=== PATIENT | female | born 1950 | race Caucasian/White ===

== ENCOUNTER 2019-01-14 03:13 | Inpatient (IN) | payer OTHER, MEDICAID ==
[~2019-01-14] VITALS: Ht 160 cm; Wt 68.0 kg
[~2019-01-14 03:13] MED LIST: [UNRECOGNIZED DRUG - CODE] PO
[2019-01-14 03:38] VITALS: BP 145/95
--- NOTE | 2019-01-14 03:55 | NUR ---
PT TAKEN TO BED 11
--- NOTE | 2019-01-14 04:00 | NUR ---
68 Y/O FEMALE PRESENTS TO ED, C/O FEVER. PT STATES SHE HAS BEEN HAVING FEVER FOR PAST COUPLE DAYS. NIECE AT BEDSIDE STATES PT'S FEVER HAS BEEN AROUND 100. PT ALSO C/O GENERALIZED BODY PAIN 7/10 AND COUGH X2 DAYS. PT HAS NO RESPIRATORY DISTRESS/SOB. PT VSS. ERMD AWARE. WILL CONTINUE TO MONITOR.
--- NOTE | 2019-01-14 04:32 | NUR ---
Dr. Morfin examining patient.
[2019-01-14] MEDS ORDERED: NACL 0.9% 2,000 ML IV ONE (04:34)
[2019-01-14] MEDS ORDERED: KETOROLAC 30 MG/ML VIAL IVP ONE (04:35)
[2019-01-14] MEDS ORDERED: cefTRIAXone 1,000 MG VIAL ONE (05:06)
[2019-01-14 05:07] LABS: BASOPHILS # (AUTO) 0.1 K/uL (0.00-0.22); BASOPHILS % (AUTO) 0.6 % (0.0-2.0); EOSINOPHILS % (AUTO) 0.3 % (0.0-4.0); HEMATOCRIT 39.8 % (36-48); HEMOGLOBIN 13.4 g/dL (12.0-16.0); LYMPHOCYTES # (AUTO) 1.1 K/uL (2.5-16.5); LYMPHOCYTES % (AUTO) 10.2 % (20.5-51.1); MEAN CORPUSCULAR HEMOGLOBIN 31 pg (27-31); MEAN CORPUSCULAR HGB CONC 34 g/dL (33-37); MEAN CORPUSCULAR VOLUME 91.6 fL (80-94); MONOCYTES % (AUTO) 9.5 % (1.7-9.3); NEUTROPHILS # (AUTO) 8.6 K/uL (1.8-7.7); NEUTROPHILS % (AUTO) 79.4 % (42.2-75.2); PLATELET COUNT (AUTO) 274 K/uL (140-450); RED BLOOD CELL COUNT(AUTO) 4.34 MIL/uL (4.20-5.40); RED CELL DISTRIBUTION WIDTH 13.5 % (11.6-13.7); WHITE BLOOD COUNT (AUTO) 10.9 K/uL (4.8-10.8)
[2019-01-14 05:21] LABS: ANION GAP 10.8 (8-16); CARBON DIOXIDE 29.8 mmol/L (21-32); CREATININE 0.8 mg/dL (0.6-1.3); POTASSIUM 3.6 mmol/L (3.5-5.1)
[2019-01-14 05:36] LABS: ALBUMIN 3.3 g/dL (3.4-5.0); TOTAL BILIRUBIN 0.7 mg/dL (0.0-1.0)
[2019-01-14 06:30] LABS: APPEARANCE,URINE HAZY (CLEAR); BILIRUBIN,URINE NEGATIVE (NEGATIVE); BLOOD, URINE 1+ (NEGATIVE); COLOR,URINE YELLOW (YELLOW); LEUKOCYTE ESTERASE ,URINE TRACE (NEGATIVE); NITRITE, URINE NEGATIVE (NEGATIVE); PH,URINE 6.5 (5.0-9.0); UGLUCOSE NEGATIVE (NEGATIVE)
[2019-01-14 06:49] LABS: RBC,URINE 0-5 /HPF (0-5)
--- NOTE | 2019-01-14 06:53 | NUR ---
Dr. Grullon examining patient.
[2019-01-14] MEDS ORDERED: DOCUSATE SODIUM 100 MG GELCAP PO PRN (07:00)
[2019-01-14] MEDS ORDERED: HYDROcodone/APAP 5/325 MG 1 TAB TAB PO PRN (07:00)
[2019-01-14] MEDS ORDERED: ONDANSETRON 4 MG/2 ML VIAL IM/IVP PRN (07:00)
--- NOTE | 2019-01-14 07:22 | NUR ---
PT ADMITTED TO [facility] RM 114. TRANSFERRED PT VIA [facility]. REPORT GIVEN TO SHAYY CABELLO. PT CARE TRANSFERRED TO RECEIVING RN.
--- NOTE | 2019-01-14 07:25 | NUR ---
PT ARRIVED ON THE UNIT VIA GURNEY. RECIEVED REPORT FROM JT COLE RN. PT APPEARS STABLE AND IN NO APPARENT DISTRESS. ALL SAFETY MEASURES ARE IN PLACE. ORIENTED PT TO UNIT. VITALS STABLE. MRSA COLLECTED WILL CONTINUE TO MONITOR.
[2019-01-14] MEDS: NACL 0.9% 1,000 ML IV SCH ×2 (08:34→21:41)
--- NOTE | 2019-01-14 09:34 | NUR ---
FREQUENT ROUNDING ON PT PT APPEARS STABLE AND WILL CONTINUE TO MONITOR
[2019-01-14] MEDS: ACETAMINOPHEN 325 MG TAB PO PRN (11:52)
[2019-01-14 12:06] VITALS: BP 145/76
--- NOTE | 2019-01-14 12:32 | NUR ---
PT HAS FEVER 101.1 ADMINISTERED TORADOL ORDERED INFORMED DR. BLANKENSHIP. DR. BLANKENSHIP TO SEE PT AT BEDSIDE.
[2019-01-14] MEDS ORDERED: KETOROLAC 15 MG/ML VIAL IVP SCH (12:35)
--- NOTE | 2019-01-14 13:20 | NUR ---
PATIENT HAS BEEN SCREENED AND CATEGORIZED HIGH NUTRITION RISK. PATIENT WILL BE SEEN WITHIN 1-2 DAYS OF ADMISSION. 01/14/19 - 01/15/19 MACARIO GONZALEZ MBA, RD
--- NOTE | 2019-01-14 13:31 | NUR ---
TORADOL REASSESSMENT PT TEMP 98.6 PT APPEARS STABLE AND IN NO APPARENT DISTRESS. PT NOT COMPLAINING OF ANY NAUSEA, OR CHILLS.
[2019-01-14 16:02] LABS: BASOPHILS % (AUTO) 0.2 % (0.0-2.0); EOSINOPHILS % (AUTO) 0.1 % (0.0-4.0); HEMATOCRIT 34.9 % (36-48); HEMOGLOBIN 11.5 g/dL (12.0-16.0); LYMPHOCYTES # (AUTO) 0.7 K/uL (2.5-16.5); MEAN CORPUSCULAR HEMOGLOBIN 30 pg (27-31); MEAN CORPUSCULAR HGB CONC 33 g/dL (33-37); MONOCYTES # (AUTO) 1.2 K/uL (0.8-1.0); NEUTROPHILS # (AUTO) 9.8 K/uL (1.8-7.7); NEUTROPHILS % (AUTO) 83.7 % (42.2-75.2); PLATELET COUNT (AUTO) 244 K/uL (140-450); RED CELL DISTRIBUTION WIDTH 13.4 % (11.6-13.7); WHITE BLOOD COUNT (AUTO) 11.8 K/uL (4.8-10.8)
[2019-01-14 16:19] LABS: ALBUMIN 2.7 g/dL (3.4-5.0); ANION GAP 12.9 (8-16); CARBON DIOXIDE 25.1 mmol/L (21-32); CREATININE 0.8 mg/dL (0.6-1.3); MAGNESIUM 1.4 mg/dL (1.8-2.4); PHOSPHORUS 2.3 mg/dL (2.5-4.9); TOTAL BILIRUBIN 0.3 mg/dL (0.0-1.0)
[2019-01-14 16:25] VITALS: BP 146/76
[2019-01-14] MEDS ORDERED: POTASSIUM CHLORIDE 40 MEQ, LIDOCAINE MPF 1% 25 MG in NACL 0.9% 250 ML IV ONE (16:40)
[2019-01-14] MEDS ORDERED: SODIUM PHOS / POTASSIUM PHOS 1 PKT PDR PO ONE (16:55)
[2019-01-14] MEDS ORDERED: MAGNESIUM OXIDE 400 MG TAB PO ONE (16:55)
[2019-01-14] MEDS ORDERED: NICOTINE TRANSD SYS 14 MG/24 HR PATCH TD SCH (16:55)
[2019-01-14 17:03] LABS: PROTHROMBIN TIME 10.3 secs (10.8-13.4)
[2019-01-14 17:16] LABS: THYROID STIMULATING HORMONE 0.07 uIU/mL (0.34-3.74)
--- NOTE | 2019-01-14 17:32 | NUR ---
FREQUENT ROUNDING ON PT PT APPEARS STABLE AND IN NO APPARENT DISTRESS. ALL SAFETY MEASURES ARE IN PLACE WILL CONTINUE TO MONITOR. PT NIECE AT BEDSIDE.
[2019-01-14 18:06] LABS: BARBITURATE, URINE NEG. ng/ml (NEG <=200); BENZODIAZEPINE, URINE NEG. ng/mL (NEG <=200); CANNABINOID, URINE NEG. ng/mL (NEG <=50); COCAINE, URINE NEG. ng/mL (NEG <=300); OPIATE, URINE NEG. ng/mL (NEG <=2000); PHENCYCLIDINE SCREEN,URINE NEG. ng/mL (NEG <=25)
[2019-01-14] MEDS ORDERED: POTASSIUM CHLORIDE 10 MEQ TABER PO ONE (18:10)
--- NOTE | 2019-01-14 18:13 | NUR ---
SPOKE WITH DR. BLANKENSHIP ABOUT POTASSIUM IV WITH LIDOCAINE ORDER. UNABLE TO ADMINISTER PHARMACY AFTER HOURS. DR. BLANKENSHIP SAID TO JUST GIVE PO POTASSIUM FOR NOW
--- NOTE | 2019-01-14 18:33 | NUR ---
ADMINISTERED MAG PO, POTASSIUM PO, NICOTINE PATCH, LEFT SHOULDER. PHOS PACKET. NO SCANNER ON OUTPATIENT WOW. ENTERED MANUAL BARCODE
--- NOTE | 2019-01-14 19:16 | NUR ---
endorsed pt to pm rn pt appears stable and in no apparent distress. all safety measures are in place ivf infusing iv site patent and shows no signs of infiltration or inflammation.
--- NOTE | 2019-01-14 19:17 | NUR ---
RECEIVED REPORT FROM AM NURSE AT BEDSIDE. PATIENT IS LAYING IN BED LETHARGIC WITH A HIGH TEMPERATURE PER PREVIOUS SHIFT, WILL RECHECK TEMP LATER. PATIENT RESPIRATIONS EVEN AND UNLABORED ON ROOM AIR. PATIENT AOX3. PATIENT BOARD UPDATED. IV SITE INTACT, ASYMPTOMATIC AND PATENT ON NS 100ML/HR. PATIENT WITH SUPRAPUBIC STOMA. CALL LIGHT PLACED WITHIN PATIENT REACH, BED LOWERED. WILL CONTINUE TO MONITOR PATIENT.
[2019-01-14 20:10] VITALS: BP 137/77
--- NOTE | 2019-01-14 21:00 | NUR ---
PT NOT ABLE TO SWALLOW ACETAMINOPHEN AT THIS TIME, PT LETHARGIC WITH FEVER 101.8. DR. ANGELA INFORMED WILL ORDER TORADOL
[2019-01-14] MEDS ORDERED: KETOROLAC 15 MG/ML VIAL ONE (21:19)
[2019-01-14] MEDS: KETOROLAC 15 MG/ML VIAL IVP SCH (21:20)
--- NOTE | 2019-01-14 21:20 | NUR ---
TORADOL GIVEN PER DR'S ORDER
[2019-01-15 00:10] VITALS: BP 164/77
[2019-01-15] MEDS: KETOROLAC 15 MG/ML VIAL IVP SCH ×3 (01:04→12:27)
--- NOTE | 2019-01-15 01:05 | NUR ---
ROUTINE TORADOL GIVEN ORDERED
[2019-01-15 04:05] VITALS: BP 125/65
[2019-01-15] MEDS ORDERED: cefTRIAXone 1,000 MG VIAL ONE (05:18)
--- NOTE | 2019-01-15 05:30 | NUR ---
ROCEPHIN GIVEN AT THIS TIME
[2019-01-15] MEDS: ACETAMINOPHEN 325 MG TAB PO PRN (06:30)
--- NOTE | 2019-01-15 07:15 | NUR ---
PT AWAKE, ALERT, ORIENTED X 3, PT AFEBRILE, AMBULATORY WITH STANDBY ASSIST. PT IN STABLE CONDITION AT THIS TIME
--- NOTE | 2019-01-15 07:20 | NUR ---
RECEIVED REPORT FROM MANAGER REQUIREMENTS NURSE. PATIENT IS AWAKE, ALERT, ORIENTED X4. RESPIRATION EVEN AND UNLABORED. SAFETY MEASURES IN PLACE. OBSERVED WITH IVF NS INFUSING 100ML/HR VIA LEFT FOREARM 22G. IV INTACT AND PATENT. NO EDEMA NOTED. SIDE RAILS UP X2. NO ACUTE DISTRESS NOTED. CALL LIGHT WITHIN REACH. DENIES PAIN AT THIS TIME.
--- NOTE | 2019-01-15 07:30 | NUR ---
NS 1000ML CHANGED
[2019-01-15 07:37] LABS: CHOL/HDL RATIO 2.4 (1-4.5)
[2019-01-15] MEDS: NACL 0.9% 1,000 ML IV SCH ×2 (07:44→18:38)
[2019-01-15 08:00] VITALS: BP 139/60
[2019-01-15] MEDS: NICOTINE TRANSD SYS 14 MG/24 HR PATCH TD SCH (09:32)
[2019-01-15] MEDS: LACTOBACILLUS RHAMNOSUS GG 1 EACH CAP PO SCH (09:33)
[2019-01-15] MEDS ORDERED: POTASSIUM CHLORIDE 40 MEQ, LIDOCAINE MPF 1% 25 MG in NACL 0.9% 250 ML IV ONE (09:55)
[2019-01-15] MEDS ORDERED: MAGNESIUM OXIDE 400 MG TAB PO ONE (10:00)
[2019-01-15] MEDS ORDERED: SODIUM PHOS / POTASSIUM PHOS 1 PKT PDR PO ONE (10:00)
[2019-01-15 12:00] VITALS: BP 175/79
--- NOTE | 2019-01-15 12:27 | NUR ---
PT WAS GIVEN PAIN MEDICATION IV PUSH NOW, PARAMETER CHECKED. WILL MONITOR PT.
[2019-01-15] MEDS ORDERED: hydrALAZINE 20 MG/ML VIAL IVP PRN (12:30)
[2019-01-15] MEDS ORDERED: LISINOPRIL 5 MG TAB PO SCH (12:33)
--- NOTE | 2019-01-15 12:47 | NUR ---
PT'S BP WAS CHECKED AND IS 175/79, PULSE IS 88, DR. NORRIS WAS INFORMED AND BP MEDICATION WAS GIVEN VIA IV PUSH. WILL RECHECK BP AND MONITOR PT.
--- NOTE | 2019-01-15 13:11 | NUR ---
PT' BP WAS CHECKED AFTER 15 MINS OF GIVING THE HYDRALAZINE AND BP IS 152/65, PULSE IS 95, LISINOPRIL WAS GIVEN PER DR. NORRIS. WILL RECHECK BP AND MONITOR PT.
--- NOTE | 2019-01-15 13:49 | NUR ---
01/15/19 RD INITIAL ASSESSMENT COMPLETED PLEASE REFER TO NUTRITION ASSESSMENT UNDER CARE ACTIVITY FOR ESTIMATED NUTRITIONAL NEEDS. 1. CONTINUE REGULAR DIET TOLERATED 2. ENCOURAGE INCREASING PO INTAKE 3. RD TO FOLLOW-UP 5-7 DAYS, LOW RISK BRIGID KEENE RD
[2019-01-15 15:22] LABS: BASOPHILS % (AUTO) 0.5 % (0.0-2.0); EOSINOPHILS # (AUTO) 0.1 K/uL (0-0.4); EOSINOPHILS % (AUTO) 0.9 % (0.0-4.0); HEMOGLOBIN 11.7 g/dL (12.0-16.0); LYMPHOCYTES # (AUTO) 0.8 K/uL (2.5-16.5); MEAN CORPUSCULAR HEMOGLOBIN 31 pg (27-31); MEAN CORPUSCULAR HGB CONC 33 g/dL (33-37); MEAN CORPUSCULAR VOLUME 91.4 fL (80-94); MONOCYTES # (AUTO) 0.9 K/uL (0.8-1.0); MONOCYTES % (AUTO) 9.2 % (1.7-9.3); NEUTROPHILS % (AUTO) 81.4 % (42.2-75.2); PLATELET COUNT (AUTO) 227 K/uL (140-450); RED BLOOD CELL COUNT(AUTO) 3.83 MIL/uL (4.20-5.40); RED CELL DISTRIBUTION WIDTH 13.3 % (11.6-13.7); WHITE BLOOD COUNT (AUTO) 9.8 K/uL (4.8-10.8)
[2019-01-15 15:58] LABS: ALBUMIN 2.4 g/dL (3.4-5.0); ANION GAP 12.8 (8-16); CARBON DIOXIDE 25.6 mmol/L (21-32); CREATININE 1.1 mg/dL (0.6-1.3); PHOSPHORUS 2.2 mg/dL (2.5-4.9); POTASSIUM 3.4 mmol/L (3.5-5.1); TOTAL BILIRUBIN 0.3 mg/dL (0.0-1.0)
[2019-01-15 16:00] VITALS: BP 141/55
[2019-01-15] MEDS ORDERED: POTASSIUM PHOSPHATE 15 MM in NACL 0.9% 250 ML IV SCH (18:00)
--- NOTE | 2019-01-15 18:53 | NUR ---
POTASSIUM IV WAS GIVEN TO PT NOW FOR K LEVEL OF 3.4. WILL MONITOR PT.
--- NOTE | 2019-01-15 19:37 | NUR ---
ENDORSED PT TO BLUE CRABBER NURSENEISHA FOR CONTINUITY OF CARE.
--- NOTE | 2019-01-15 19:38 | NUR ---
BEDSIDE REPORT RECEIVED FROM DAY SHIFT RN. A/O X4 PERSON PLACE TIME AND EVENT. DISCUSSED PLAN OF CARE. VERBALIZED UNDERSTANDING. AMBULATORY WITH STEADY GAIT. NO SIGNS OF DISTRESS. NO SOB. EVEN UNLABORED BREATHING. ROOM AIR. NO PAIN REPORTED AT THIS TIME. SKIN INTACT. IV @ L WRIST 22G. PATENT AND INTACT. UROSTOMY IN PLACE, DRY AND INTACT. TELE MONITOR PLACED. BED IN LOWEST POSITION. CONTACT PRECAUTIONS IN PLACE. PPE AVAILABLE AT DOOR. CALL LIGHT WITHIN REACH. WILL CONTINUE TO MONITOR.
[2019-01-15 20:00] VITALS: BP 140/63
--- NOTE | 2019-01-15 21:00 | NUR ---
PT REFUSED SCHEDULED MED HEPARIN. EDUCATED ON SIDE EFFECTS AND VERBALIZED UNDERSTANDING.
--- NOTE | 2019-01-15 23:00 | NUR ---
PT SITTING IN BED. REQUESTED ICE CHIPS. NO SIGNS OF DISTRESS. EVEN UNLABORED BREATHING. WILL CONTINUE TO MONITOR.
[2019-01-16] VITALS: BP 158/81
[2019-01-16] MEDS: MORPHINE SULFATE 2 MG/ML SYR IVP PRN ×2 (00:09→17:29)
--- NOTE | 2019-01-16 00:53 | NUR ---
PT RESTING IN BED. NO SIGNS OF DISTRESS. PAIN DECREASED. ABLE TO MAKE NEEDS KNOWN. WILL CONTINUE TO MONITOR.
--- NOTE | 2019-01-16 02:49 | NUR ---
PT SLEEPING IN BED. NS INFUSING AT THIS TIME. IV PATENT AND INTACT. NO SIGNS OF INFILTRATION. WILL CONTINUE TO MONITOR.
[2019-01-16] MEDS: NACL 0.9% 1,000 ML IV SCH ×3 (03:20→23:41)
[2019-01-16 04:00] VITALS: BP 169/76
--- NOTE | 2019-01-16 04:10 | NUR ---
PT SLEEPING IN BED. ABLE TO MAKE NEEDS KNOWN. VITALS TAKEN. TOLERATED WELL. TEMP 100.9 ORAL. WILL ADMINISTER TYLENOL FOR FEVER. WILL CONTINUE TO MONITOR.
[2019-01-16] MEDS: ACETAMINOPHEN 325 MG TAB PO PRN (04:11)
--- NOTE | 2019-01-16 06:40 | NUR ---
PT SLEEPING IN BED. EVEN UNLABORED BREATHING. BED IN LOWEST POSITION. PT IN STABLE CONDITION. WILL GIVE BEDSIDE REPORT TO DAYSHIFT RN FOR CONTINUITY OF CARE.
--- NOTE | 2019-01-16 07:10 | NUR ---
RECEIVED PT FROM BUSINESS OPERATIONS COORDINATOR NEISHA, PT IS AWAKE AND LYING ON THE BED WITH SIDE RAILS UP AND CALL LIGHT WITHIN REACH, IV LINE ON THE LEFT FA G. 22 WITH IVF NS INFUSING AT 100ML/HR, INTACT, UROSTOMY IN PLACE IN THE RT ABDOMINAL SIDE AREA, ON CONTACT ISOLATION FOR HX OF MRSA OF NAR[place], NO SIGN OF DISTRESS NOTED AND WILL CONTINUE TO MONITOR PT.
[2019-01-16 08:00] VITALS: BP 129/50
[2019-01-16 08:12] LABS: BASOPHILS # (AUTO) 0.1 K/uL (0.00-0.22); BASOPHILS % (AUTO) 0.7 % (0.0-2.0); EOSINOPHILS # (AUTO) 0.1 K/uL (0-0.4); EOSINOPHILS % (AUTO) 1.3 % (0.0-4.0); HEMATOCRIT 33.1 % (36-48); HEMOGLOBIN 10.9 g/dL (12.0-16.0); LYMPHOCYTES # (AUTO) 1.1 K/uL (2.5-16.5); LYMPHOCYTES % (AUTO) 11.8 % (20.5-51.1); MEAN CORPUSCULAR HEMOGLOBIN 30 pg (27-31); MEAN CORPUSCULAR HGB CONC 33 g/dL (33-37); MEAN CORPUSCULAR VOLUME 91.8 fL (80-94); MONOCYTES # (AUTO) 0.8 K/uL (0.8-1.0); MONOCYTES % (AUTO) 8.5 % (1.7-9.3); NEUTROPHILS # (AUTO) 7.1 K/uL (1.8-7.7); NEUTROPHILS % (AUTO) 77.7 % (42.2-75.2); PLATELET COUNT (AUTO) 240 K/uL (140-450); RED BLOOD CELL COUNT(AUTO) 3.61 MIL/uL (4.20-5.40); RED CELL DISTRIBUTION WIDTH 13.2 % (11.6-13.7); WHITE BLOOD COUNT (AUTO) 9.2 K/uL (4.8-10.8)
[2019-01-16 08:32] LABS: MAGNESIUM 1.8 mg/dL (1.8-2.4); PHOSPHORUS 2.4 mg/dL (2.5-4.9)
[2019-01-16] MEDS: LACTOBACILLUS RHAMNOSUS GG 1 EACH CAP PO SCH (08:38)
--- NOTE | 2019-01-16 08:38 | NUR ---
MEDICATIONS GIVEN ORDERED. BP MEDS GIVEN, BP 144/65, HR 75. TOLERATED WELL. NO ACUTE DISTRESS NOTED. CALL LIGHT WITHIN REACH.
[2019-01-16 08:39] LABS: ANION GAP 9.9 (8-16); CARBON DIOXIDE 26.3 mmol/L (21-32); CREATININE 0.7 mg/dL (0.6-1.3); POTASSIUM 3.2 mmol/L (3.5-5.1)
[2019-01-16] MEDS: NICOTINE TRANSD SYS 14 MG/24 HR PATCH TD SCH (08:39)
[2019-01-16] MEDS ORDERED: LISINOPRIL 5 MG TAB PO SCH ×2 (09:00)
--- NOTE | 2019-01-16 10:38 | NUR ---
PT REFUSED TO HAVE THE COTTONSEED MEAT PRESSER FIX HER BED AND CLEAN UP.
[2019-01-16 12:00] VITALS: BP 137/63
--- NOTE | 2019-01-16 13:41 | NUR ---
PATIENT IN BED QUIETLY RESTING, WATCHING TV. IVF NS REPLACED WITH A NEW BAG CONT. INFUSION AT 100ML/HR.
--- NOTE | 2019-01-16 15:50 | NUR ---
DR. BLANKENSHIP INFORMED OF PATIENT'S ABNORMAL LABS POTASSIUM 3.2. MD WILL PLACE AN ORDER.
[2019-01-16 16:00] VITALS: BP 148/64
--- NOTE | 2019-01-16 17:29 | NUR ---
PATIENT REPORTED PAIN 10/10. MORPHINE 1MG IVP GIVEN ORDERED. TOLERATED WELL.
[2019-01-16] MEDS ORDERED: SODIUM PHOS / POTASSIUM PHOS 1 PKT PDR PO SCH (18:00)
[2019-01-16] MEDS ORDERED: POTASSIUM CHLORIDE 10 MEQ TABER PO SCH (18:00)
--- NOTE | 2019-01-16 18:05 | NUR ---
PT IS AWAKE AND ORAL MEDICATIONS WERE GIVEN FOR K LEVEL OF 3.2. WILL MONITOR PT.
--- NOTE | 2019-01-16 19:10 | NUR ---
ENDORSED PATIENT TO FRONT END DRUPAL DEVELOPER NURSE FOR CONTINUITY OF CARE. PATIENT IN STABLE CONDITION.
--- NOTE | 2019-01-16 19:11 | NUR ---
RECD. RESTING IN BED, AWAKE, A/OX4. RESPIRATION EVEN AND UNLABORED. IV OF NS AT 100 ML/HR INFUSING. IV IS LEAKING. DISCONNECT FROM PATIENT AND INFORMED NEW IV INSERTION WILL BE DONE BUT PATIENT REFUSED, STATED I AM GOING HOME TOMORROW. REMINDED THAT THERE IS STILL ANTIBIOTIC DUE TOMORROW AT 0600. WILL INFORMED MD. UROSTOMY IN PLACED AND INTACT, PATIENT KNOWS HOW TO MANAGE IT. PLAN OF CARE FOR THE SHIFT DISCUSSED. VERBALIZED UNDERSTANDING. DENIES PAIN 0/10.
[2019-01-16 20:00] VITALS: BP 167/71
--- NOTE | 2019-01-16 20:00 | NUR ---
Patient's Plan of Care was discussed and reviewed with PLASTICS FITTER: Antoinette Carrasco
--- NOTE | 2019-01-16 20:30 | NUR ---
INFORMED DR. SORIANO PATIENT BP - 167/76, HR -88. WILL ORDER BP MEDICATION.
[2019-01-16] MEDS ORDERED: LISINOPRIL 10 MG TAB PO SCH (20:50)
--- NOTE | 2019-01-16 21:22 | NUR ---
MEDICATED WITH ZESTRIL 10 MG. PO ORDERED BY . PATIENT STILL REFUSING IV INSERTION. WILL INFORMED .
--- NOTE | 2019-01-16 22:20 | NUR ---
BP CHECKED - 152/84. HR -88. WATCHING TV.
--- NOTE | 2019-01-16 23:00 | NUR ---
INFORMED DR. SORIANO THAT PATIENT IS REFUSING IV INSERTION AND WANTS ANTIBIOTIC BY PO, WILL DECIDE IN THE MORNING.
[2019-01-17] VITALS: BP 150/82
--- NOTE | 2019-01-17 00:30 | NUR ---
SLEEPING COMFORTABLY IN BED.
[2019-01-17 04:00] VITALS: BP 134/57
--- NOTE | 2019-01-17 06:15 | NUR ---
REFUSED BLOO0 DRAW BY [employer]. WANTS TO GO HOME TODAY.
--- NOTE | 2019-01-17 07:15 | NUR ---
CONDITION REMAIN STABLE. ENDORSED TO DESTINEY STACK FOR CONTINUITY OF CARE.
[2019-01-17] MEDS ORDERED: SODIUM PHOS / POTASSIUM PHOS 1 PKT PDR PO SCH ×2 (07:30→10:30)
[2019-01-17 08:00] VITALS: BP 145/74
[2019-01-17] MEDS ORDERED: POTASSIUM CHLORIDE 40 MEQ, LIDOCAINE MPF 1% 25 MG in NACL 0.9% 250 ML IV SCH (08:00)
[2019-01-17] MEDS ORDERED: LACT10CA1 PO (09:38)
[2019-01-17] MEDS ORDERED: CEPH250C16 PO (09:38)
--- NOTE | 2019-01-17 10:23 | NUR ---
PATIENT WANTS TO LEAVE HOME NOW AND IS TIRED OF WAITING FOR HER DISCHARGE PAPERS. REFUSED PNA AND FLU SHOT UPON DISCHARGE AT THIS TIME.
--- NOTE | 2019-01-17 10:24 | NUR ---
SCHEDULED MEDICATIONS DUE GIVEN. WILL CONTINUE TO MONITOR.
--- NOTE | 2019-01-17 10:25 | NUR ---
PATIENT SITTING DOWN AT BEDSIDE CHAIR WITH FAMILY MEMBER AT BEDSIDE. PATIENT EAGER TO GO HOME AT THIS TIME. DISCHARGE INSTRUCTIONS GIVEN TO PATIENT/FAMILY AT BEDSIDE IN PREFERRED LANGUAGE OF SWEDISH. INSTRUCTIONS ON FOLLOW-UP WITH PCP, NEW/CHANGED MEDICATION REGIMEN, DIET REGIMEN, AND DISEASE MANAGEMENT/PREVENTION OF UTI. PATIENT/FAMILY VERBALIZED UNDERSTANDING. ID BANDS REMOVED. ESCORTED PATIENT DOWN TO LOBBY VIA STEADY AMBULATION. PATIENT DISCHARGED TO HOME IN PRIVATE VEHICLE AT THIS TIME IN STABLE CONDITION.
[2019-01-17] MEDS ORDERED: POTASSIUM CHLORIDE 10 MEQ TABER PO SCH (10:30)
[2019-01-20 06:08] LABS: FOLIC ACID 12.1 ng/mL (>3.0)
== END 2019-01-17 10:25 | disposition home or self-care (01) | DRG 872 ==
LOC: MED 03:13 → MTU 06:56
PROVIDERS: ADMIT Family Medicine; ATTEND Family Medicine
DX: A41.9 Sepsis, unspecified organism (principal); N12 Tubulo-interstitial nephritis, not specified as acute or chronic; E44.0 Moderate protein-calorie malnutrition; E87.6 Hypokalemia; E83.39 Other disorders of phosphorus metabolism; E83.42 Hypomagnesemia; Z85.42 Personal history of malignant neoplasm of other parts of uterus; I10 Essential (primary) hypertension; H54.42A3 Blindness left eye category 3, normal vision right eye; Z87.891 Personal history of nicotine dependence; K44.9 Diaphragmatic hernia without obstruction or gangrene; Z68.26 Body mass index [BMI] 26.0-26.9, adult
CPT/HCPCS: 36415; 71045; 80048; 80053; 80305; 81001; 82140; 82150; 82607; 82728; 82746; 83036; 83540; 83605; 83690; 83735; 83880; 84100; 84443; 85025; 85045; 85610; 85730; 87040; 87081; 87086; 87804; 96365; 96375; 97161-GP; 99285; J0360; J0696; J1644; J1885; J2001; J2270; J2405; J3480; J7030; J7060; Q0092